=== PATIENT | female | born 1980 | race American Indian/Alaskan Native ===

== ENCOUNTER 2017-06-05 18:41 | Emergency (ER) | payer OTHER ==
[2017-06-05] MEDS ORDERED: Lidocaine 1% 10 ML MDV INJECT ONE (19:04)
--- NOTE | 2017-06-05 19:04 | EDM.PDOC ---
ED HPI GENERAL MEDICAL PROBLEM - General Chief Complaint: Laceration Stated Complaint: LACERATION MIDDLE LEFT FINGER Time Seen by Provider: 06/05/17 19:03 Source of Information: Reports: Patient History Limitations: Reports: No Limitations - History of Present Illness INITIAL COMMENTS - FREE TEXT/NARRATIVE: 37-year-old female presents to the ED with a laceration to the middle volar aspect of her left third finger. This injury occurred while working in the kitchen at the [facility]. Slipped with a sharp object which resulted in a flap laceration which is actively bleeding over aspect of the finger. Tetanus toxoid is up-to-date. No other injuries are apparent. Onset: Today Onset Date: 06/05/17 Onset Time: 18:00 Duration: Minutes: Location: Reports: Upper Extremity, Left (Left volar third finger.) Quality: Reports: Ache Severity: Mild Improves with: Reports: None Worsens with: Reports: None Context: Reports: Trauma (Slipped with sharp object). 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: Other (see below) (None.) Right Hand Pain Score (Numeric/FACES): 5 - Related Data Allergies Allergy/AdvReac Type Severity Reaction Status Date / Time No Known Allergies Allergy Verified 06/05/17 18:59 Social & Family History - Living Situation & Occupation Living situation: Reports: Single Occupation: Unemployed (Currently a resident of the [facility]) ED ROS GENERAL - Review of Systems Review Of Systems: See Below Constitutional: Reports: No Symptoms HEENT: Reports: No Symptoms Respiratory: Reports: No Symptoms Cardiovascular: Reports: No Symptoms Endocrine: Reports: No Symptoms GI/Abdominal: Reports: No Symptoms : Reports: No Symptoms Musculoskeletal: Reports: Hand Pain Skin: Reports: Other Neurological: Reports: No Symptoms Psychiatric: Reports: No Symptoms Hematologic/Lymphatic: Reports: No Symptoms Immunologic: Reports: No Symptoms ED EXAM, SKIN/RASH Exam: See Below Exam Limited By: Uncooperative General Appearance: Alert, WD/WN, No Apparent Distress Eye Exam: Bilateral Eye: Normal Inspection Throat/Mouth: Normal Inspection Head: Atraumatic Neck: Normal Inspection Respiratory/Chest: No Respiratory Distress Extremities: Other (Has a 1.5 cm flap laceration to the middle phalanx volarly of her left hand. Wound is actively bleeding. There is no evidence of neurovascular injury. She has normal sensation to both the radial and ulnar aspects of the tip of the finger with full ability to flex the finger against resistance.) ED SKIN PROCEDURES - Laceration/Wound Repair Left Middle Ventral Finger Lac/Wound length In cm: 1.5 (flap laceration middle phlanx Lt 3rd finger. ) Appearance: Subcutaneous, Clean Distal NVT: Neuro & Vascular Intact Anesthetic Type: Local Local Anesthesia - Lidocaine (Xylocaine): 1% Plain Local Anesthetic Volume: 2cc Skin Prep: Saline Closed with: Sutures Suture Size: other (5-0) # of Sutures: 4 Suture Type: Nylon, Interrupted Course - Vital Signs Last Recorded V/S: Last Vital Signs Temp 36.4 C 06/05/17 18:56 Pulse 80 06/05/17 18:56 Resp 18 06/05/17 18:56 BP 136/86 06/05/17 18:56 Pulse Ox 100 06/05/17 18:56 - Orders/Labs/Meds Meds: Medications Discontinued Medications Generic Name Dose Route Start Last Admin Trade Name Mikq PRN Reason Stop Dose Admin Lidocaine HCl 10 ml 06/05/17 19:04 Xylocaine 1% INJECT 06/05/17 19:05 ONETIME ONE - Radiology Interpretation Free Text/Narrative:: 37-year-old female presents to the ED with a flap laceration to the middle phalanx volar aspect of left third finger. This injury occurred in the kitchen at the [place] [facility]. She is up-to-date with her tetanus toxoid. Plan laceration will require repair as it is actively bleeding and his flap. Plan surgical repair under local anesthetic. Departure - Departure Time of Disposition: 19:28 Disposition: Home, Self-Care 01 Condition: Fair Clinical Impression: Laceration of finger Qualifiers: Encounter type: initial encounter Finger: middle finger Damage to nail status: without damage Foreign body presence: without foreign body Laterality: left Qualified Code(s): S61.213A - Laceration without foreign body of left middle finger without damage to nail, initial encounter - Discharge Information Forms: ED Department Discharge Additional Instructions: Evaluation in the emergency department tonight in regards to 1.5 cm laceration to the volar aspect of your left third finger that occurred in the workplace tonight. Wound was anesthetized with 1% lidocaine and then sutured x 4 to provide hemostasis and wound closure. Treatment at home is daily cleanse the wound with soap and water. Showering is okay. Then apply topical antibiotic such as bacitracin or Polysporin to the wound once daily. Cover with a bandage to keep clean and of course wear gloves kitchen. Sutures will need to be removed in 10 days' time.
== END 2017-06-05 19:35 | disposition home or self-care (01) ==
LOC: JD.ED 18:41
DX: S61.213A Laceration without foreign body of left middle finger without damage to nail, initial encounter (principal); W26.9XXA Contact with unspecified sharp object(s), initial encounter
CPT/HCPCS: 12001; 99282-25; 99283-25